=== PATIENT | male | born 1945 | race Caucasian/White ===

== ENCOUNTER 2018-09-20 17:28 | Inpatient (IN) | payer MEDICARE, BC | END 2018-09-25 14:20 | LOC: PCU 3S 17:28 | DX: A41.9 Sepsis, unspecified organism (principal); I21.A1 Myocardial infarction type 2; I13.0 Hypertensive heart and chronic kidney disease with heart failure and stage 1 through stage 4 chronic kidney disease, or unspecified chronic kidney disease; L03.116 Cellulitis of left lower limb ==